=== PATIENT | female | born 1985 | race Hispanic/Latino ===

== ENCOUNTER 2017-09-30 08:18 | Emergency (ER) | payer OTHER ==
[2017-09-30 08:48] VITALS: BP 131/84; RESP 18; O2SAT 99
--- NOTE | 2017-09-30 08:51 | ED PDOC ---
Arrival/HPI - General Chief Complaint: Eye Problem Time Seen by Provider: 09/30/17 08:34 Historian: Patient - History of Present Illness Narrative History of Present Illness (Text): 09/30/17 08:43 31 year old female, whose past medical history includes migraines, present to the emergency department complaining of eye pressure and headache for the past 5 days. Patient reports the pressure to be located on the top of the eye by the forehead. Patient does not wear any contacts or glasses. Patient reports a 100.5 fever 5 days ago before the symptoms began. She states she took Tylenol with slight relief. Patient denies any sick contact or recent travel. Patient reports nausea and dizziness, but denies any foreign body to the eyes, trauma to face or eyes, visual changes, photophobia, discharge to the eyes, chills, nasal congestion, sore throat, chest pain, shortness of breath, vomiting, diarrhea, urinary symptoms, back pain, neck pain, or any other complaints. PMD: None Time/Duration: Other (5 days) Symptom Onset: Gradual Symptom Course: Unchanged Activities at Onset: Light Context: Home Past Medical History - Provider Review Nursing Documentation Reviewed: Yes - Travel History Have you recently traveled outside [place] w/in the past 3 mons?: No - Infectious Disease Hx of Infectious Diseases: None - Reproductive Menopause: No - Psychiatric Hx Substance Use: No - Anesthesia Hx Anesthesia: No Family/Social History - Physician Review Nursing Documentation Reviewed: Yes Family/Social History: No Known Family HX Smoking Status: Unknown If Ever Smoked Hx Alcohol Use: No Hx Substance Use: No Allergies/Home Meds Allergies/Adverse Reactions: Allergies No Known Allergies Allergy (Verified 09/30/17 08:35) Review of Systems - Physician Review All systems were reviewed & negative as marked: Yes - Review of Systems Constitutional: Fevers. absent: Other (Chills) Eyes: Other ((+)eye pressure (-) no discharge). absent: Vision Changes, Photophobia ENT: absent: Sore Throat, Sinus Congestion Respiratory: absent: SOB Cardiovascular: absent: Chest Pain Gastrointestinal: Nausea. absent: Diarrhea, Vomiting Genitourinary Female: absent: Dysuria, Frequency, Hematuria Musculoskeletal: absent: Back Pain, Neck Pain Neurological: Headache, Dizziness Physical Exam Vital Signs Reviewed: Yes Vital Signs Temp Pulse Resp BP Pulse Ox 09/30/17 09:06 98.4 F 80 18 99 09/30/17 08:27 98.9 F 88 18 131/84 99 Temperature: Afebrile Blood Pressure: Normal Pulse: Regular Respiratory Rate: Normal Appearance: Positive for: Well-Appearing, Non-Toxic, Comfortable Pain Distress: None Mental Status: Positive for: Alert and Oriented X 3 - Systems Exam Head: Present: Atraumatic, Normocephalic, Other (Visual Acuity 20/20 b/l) Pupils: Present: PERRL Extroacular Muscles: Present: EOMI Conjunctiva: Present: Normal Mouth: Present: Moist Mucous Membranes Neck: Present: Normal Range of Motion. No: Meningeal Signs, MIDLINE TENDERNESS , Paraspinal Tenderness Respiratory/Chest: Present: Clear to Auscultation, Good Air Exchange. No: Respiratory Distress, Accessory Muscle Use Cardiovascular: Present: Regular Rate and Rhythm, Normal S1, S2. No: Murmurs Abdomen: No: Tenderness, Distention, Peritoneal Signs Back: Present: Normal Inspection Upper Extremity: Present: Normal Inspection. No: Cyanosis, Edema Lower Extremity: Present: Normal Inspection. No: Edema Neurological: Present: GCS=15, CN II-XII Intact, Speech Normal, Motor Func Grossly Intact, Normal Sensory Function, Normal Cerebellar Funct, Norm Deep Tendon Reflexes, Gait Normal, Memory Normal, Normal 2Pt Descrimination, Other ( negative Kernigs, Negative brudinskis) Skin: Present: Warm, Dry, Normal Color. No: Rashes Psychiatric: Present: Alert, Oriented x 3, Normal Insight, Normal Concentration Medical Decision Making ED Course and Treatment: 09/30/17 08:43 Impression: 31 year old female presents complaining of eye pressure associated with headache , dizziness, and nausea that began 5 days ago. Patient reports fever before the symptoms began. Differential Diagnosis included but are not limited to: headache VS migraine VS Early URI Plan: -- Patient appears comfortable and in no acute distress. No pain distress. No sinus pressure/tenderness. No nuchal rigidity. No other history or clinical exam findings of meningitis or SAH. No indication for CT or any blood work indicated. Progress Notes: 09/30/17 08:56 Patient currently denies any dizziness at this time. Offered patient Motrin, but patient denies wanting any medication. On re-evaluation, patient is in no acute distress. I have discussed the plan with the patient, who expresses understanding. Patient in agreement with plan to be discharged home. Patient is stable for discharge. Patient was instructed to follow up with physician or return if symptoms worsen or new concerning symptoms arise. Advised to return if fever returns, neck pain or stiffness, back pain, weakness or any other concern. - Scribe Statement The provider has reviewed the documentation as recorded by the Chitra Rodriguez Provider Scribe Attestation: All medical record entries made by the Darrickibramsey were at my direction and personally dictated by me. I have reviewed the chart and agree that the record accurately reflects my personal performance of the history, physical exam, medical decision making, and the department course for this patient. I have also personally directed, reviewed, and agree with the discharge instructions and disposition. Disposition/Present on Arrival - Present on Arrival Any Indicators Present on Arrival: No History of DVT/PE: No History of Uncontrolled Diabetes: No Urinary Catheter: No History of Decub. Ulcer: No History Surgical Site Infection Following: None - Disposition Have Diagnosis and Disposition been Completed?: Yes Diagnosis: Headache, Eye pressure Disposition: HOME/ ROUTINE Disposition Time: 09:06 Patient Plan: Discharge Condition: IMPROVED Discharge Instructions (ExitCare): Tension Headache, Migraine Headache (DC), Sinus Headache (DC) Additional Instructions: RUPA BUSTOS, thank you for letting us take care of you today. Your provider was Catrachito Cardoso DO and you were treated for headache, eye pressure. The emergency medical care you received today was directed at your acute symptoms. If you were prescribed any medication, please fill it and take as directed. It may take several days for your symptoms to resolve. Return to the Emergency Department if your symptoms worsen, do not improve, or if you have any other problems. Please contact your doctor or call one of the physicians/clinics you have been referred to that are listed on the Patient Visit Information form that is included in your discharge packet. Bring any paperwork you were given at discharge with you along with any medications you are taking to your follow up visit. Our treatment cannot replace ongoing medical care by a primary care provider outside of the emergency department. Thank you for allowing the [facility] team to be part of your care today. If you had an X-Ray or CT scan: A Radiologist will review the ED reading if any change in treatment is needed we will contact you. If you had a blood, urine, or wound culture: It will take several days for the results, if any change in treatment is needed we will contact you. If you had an STI test: It will take 48 hours for the results. Please call after 1 week if you have not heard back. Prescriptions: Ibuprofen [Motrin] 600 mg PO Q6 PRN #30 tab PRN Reason: Pain, Moderate (4-7) Referrals: [facility] at [facility] [Outside] - Follow up with primary Papo Rubio MD [Staff Provider] - Follow up with primary Kevin Branch [Staff Provider] - Follow up with primary Forms: [facility] ([place]), WORK NOTE
[2017-09-30 09:07] VITALS: PULSE 80; TEMP 98.4
== END 2017-09-30 09:06 | disposition home or self-care (01) ==
LOC: ED 08:18
DX: H57.8 Other specified disorders of eye and adnexa (principal); R51 Headache